=== PATIENT | female | born 1960 | race Caucasian/White ===

== ENCOUNTER → 2021-01-14 09:58 | Outpatient (BNVA) | payer BC, SELFPAY | PROVIDERS: PCP Internal Medicine; Visit Provider Hospitalist ==

== ENCOUNTER → 2021-02-09 15:01 | Outpatient (REF) | payer BC, SELFPAY | LOC: HO.SL 15:01 | PROVIDERS: Visit Provider Hospitalist | DX: G47.33 Obstructive sleep apnea (adult) (pediatric) (principal) | CPT/HCPCS: 95806 ==

== ENCOUNTER → 2021-03-25 09:58 | Outpatient (BNVA) | payer BC, SELFPAY | PROVIDERS: PCP Internal Medicine; Visit Provider Hospitalist | DX: G47.33 Obstructive sleep apnea (adult) (pediatric) (principal) ==

== ENCOUNTER → 2021-07-15 09:51 | Outpatient (BNVA) | payer BC, SELFPAY | PROVIDERS: PCP Internal Medicine; Visit Provider Hospitalist | DX: G47.33 Obstructive sleep apnea (adult) (pediatric) (principal) ==

== ENCOUNTER 2022-10-19 15:47 | Outpatient (AMB) | payer BC, SELFPAY ==
[2022-10-19 15:50] VITALS: PULSE 90; O2SAT 96; BMI 31.0
--- NOTE | 2022-10-19 15:50 | A.OFFVIS_ITS ---
Intake Vital Signs 10/19/22 15:50 Height 5 ft 3 in Weight 175 lb BMI 31.0 Pulse 90 Pulse Source Pulse Oximeter Pulse Oximetry (%) 96 Oxygen Delivery Method Room Air Intake Visit Reasons: sleep apnea Allergies codeine Adverse Reaction (Mild, Verified 10/19/22 15:51) Abdominal Pain HPI HPI Comments History of Present Illness Details The patient is a 62-year-old woman with a known history of hypercholesterolemia who apparently has been developing worsening daytime drowsiness. The patient does have significant snoring. She does wake up short of breath. There has been documented cases of apneic episodes from her and also documented significant snoring. The patient does have an elevated Lorton score of 11/24. Denies any significant headaches. However, feels like she is having to take a nap every day and just does not feel well rested. In view of her cardiovascular risk factors the patient should be evaluated for underlying obstructive sleep apnea. 03/25/2021 the patient is here for a pulmonary follow-up visit. Overall the patient continues to have daytime drowsiness. She does complain of headaches in the morning. Her Lorton score still elevated 12/24. She did undergo a home sleep study which we personally reviewed. It appears that her AHI is 26.4 consistent with severe obstructive sleep apnea. In addition to that she did have significant desaturations down to 84% and heart rate was documented to be as high as 150. The patient understands that she has severe disease in therefore increased risk for cardiovascular and cerebrovascular disease. The patient needs to start CPAP therapy as soon as possible. Will make arrangements with local [facility] in order to do so. in the meantime we did talk about the importance of positional therapy. she denies any other respiratory complaints. 07/15/2021 the patient is here for a pulmonary follow-up visit. The patient overall has been doing better. She has been tolerating her CPAP. CPAP therapy continues to be affecting beneficial. I did request a download from the [facility] and also access to [email or web address]. However, the [facility] has yet to respond. Will continue to try in order to further adjust her machine. In the meantime her nasal mask keeps coming off and therefore she has been having hard time maintaining the mask from leaking. She does like the dental practitioner mask. I did have a p10 mask mask along with chinstrap that I do believe is going to work better. I will request the mask from the [facility] as well. Once have access to air view I can adjust the machine accordingly. Otherwise she denies any respiratory symptoms. Patient is doing well. 10/19/2022 the patient is here for pulmonary follow-up visit. Overall the patient has been doing well. She continues use her APAP every night. The PAP therapy has been affecting beneficial. She does use it for more than 4 hours a night. The last 4 nights the patient has had issues with sinusitis and therefore she stopped using it until her symptoms improve. Still she is using more than 70% of the time. The patient does use nasal pillows. We did talk about different therapies that she can do for her chronic rhinitis to minimize sinusitis. Patient will consider getting an 80 bottle. She can do the Neti bottle prior to putting on the CPAP mask. As far as her download her AHI is below 1 which is reassuring. Her pressure settings are good and is working effectively. Patient is not having any adverse effects at this time. [facility] Medical History (Updated 10/19/22 @ 22:48 by Gian Bermudez MD) Chronic allergic rhinitis Hypercholesteremia PAMELA (obstructive sleep apnea) Surgical History (Updated 07/15/21 @ 09:26 by Kyung Taylor PA-C) History of appendectomy History of Social History (Updated 03/25/21 @ 10:11 by JOSE DAVID Calhoun) Patient Tobacco Use Status: Never used Tobacco Review of Systems Const Denies daytime sleepiness, Denies fatigue, Denies headache(s), Denies night sweats, Denies snoring and Denies stops breathing during sleep ENT Denies change in voice, Denies headache(s), Denies lip swelling, Denies mouth pain, Reports nasal congestion, Reports nasal discharge and Denies tongue swelling Card Denies chest pain Resp Denies snoring GI Denies abdominal pain Musc Denies no additional complaints Neuro Denies Neuro-related abnormal movements and Denies headache(s) Psych Denies no additional complaints Endo Denies fatigue Antonio/Lymph Denies easy bleeding and Denies lymphadenopathy Aller/Immun Denies lip swelling and Denies tongue swelling Physical Exam Vital Signs: Last Vital Signs Pulse 90 10/19/22 15:50 Pulse Ox 96 10/19/22 15:50 Oxygen Delivery Method Room Air 10/19/22 15:50 BMI result Body Mass Index 31.0 Const General: alert HEENT General nose exam: Other nasal findings present (face covering) Neck Neck: Yes normal visual inspection, Yes full ROM and Yes no lymphadenopathy Chest Chest palpation & inspection: normal inspection of the chest Resp Auscultation: clear to auscultation bilaterally Cardio Rate: regular rate Rhythm: regular rhythm Heart sounds: S1 normal heart sound present and S2 normal heart sound present GI Palpation (GI): Soft to palpation and nontender Auscultation: normal bowel sounds Assessment & Plan Assessment & Plan (1) PAMELA (obstructive sleep apnea): Code(s): G47.33 - Obstructive sleep apnea (adult) (pediatric) (2) Chronic allergic rhinitis: Code(s): J30.9 - Allergic rhinitis, unspecified Plan continue APAP, needs supplies. P10 nasal pillows small Needs supplies netti bottle continue with antihistamines and nasal spray daily F/U 12 months Coding Level of Care Code Est Pt Level 4 (81799) Diagnoses PAMELA (obstructive sleep apnea) G47.33 Chronic allergic rhinitis J30.9 Time Spent (min) 17
== END 2022-10-19 16:07 | disposition home or self-care (01) ==
PROVIDERS: PCP Internal Medicine; Visit Provider Hospitalist
DX: G47.33 Obstructive sleep apnea (adult) (pediatric) (principal); J30.9 Allergic rhinitis, unspecified
CPT/HCPCS: 99214

== ENCOUNTER → 2022-10-19 15:47 | Outpatient (BNVA) | payer BC, SELFPAY | PROVIDERS: PCP Internal Medicine; Visit Provider Hospitalist ==